=== PATIENT | female | born 1950 | race Caucasian/White ===

== ENCOUNTER 2019-01-17 18:45 | Inpatient (IN) | payer OTHER, MEDICARE ==
[~2019-01-17] VITALS: Ht 157.5 cm; Wt 76.7 kg
[2019-01-17] MEDS ORDERED: ETOMIDATE 2MG/ML 10ML VIAL IV ONE ×2 (18:56→19:15)
[2019-01-17] MEDS ORDERED: SUCCINYLCHOLINE CHLORIDE 200MG/10ML IV ONE ×2 (18:56→19:15)
[2019-01-17] MEDS ORDERED: PROPOFOL 10MG/ML 100ML 100 ML IV ONE (19:06)
[2019-01-17] MEDS ORDERED: HYDRALAZINE 20MG/ML VIAL ONE (19:07)
[2019-01-17] MEDS ORDERED: PROPOFOL 10MG/ML 100ML 100 ML IV SCH ×2 (19:15→22:15)
[2019-01-17] MEDS ORDERED: HYDRALAZINE 20MG/ML VIAL IV ONE (19:15)
[2019-01-17 19:22] LABS: BASOPHILS % 0.4 % (0.0-2.0); EOSINOPHILS % 0.8 % (0.0-5.0); HEMATOCRIT. 46.9 % (36.0-48.0); HEMOGLOBIN. 15.4 g/dL (12.0-16.0); LYMPHOCYTES % 24.9 % (20.0-50.0); MEAN CORPUSCULAR HEMOGLOBIN 28.4 pg (28.0-32.0); MEAN CORPUSCULAR VOLUME 86.2 fL (81.0-99.0); MEAN PLATELET VOLUME 8.2 fl (7.4-10.4); MONOCYTES % 4.4 % (2.0-8.0); NEUTROPHILS % 69.5 % (40.0-76.0); PLATELET 302 x1000/uL (130-400); RED BLOOD CELL COUNT 5.44 mill/uL (4.2-5.4); RED CELL DISTRIBUTION WIDTH 14.5 % (11.6-14.6)
[2019-01-17 19:27] LABS: CHLORIDE 103 mEq/L (98-107); PROTHROMBIN TIME 9.8 sec (9.6-11.0)
[2019-01-17 19:31] LABS: ETHANOL BLOOD < 10 mg/dL
[2019-01-17 19:34] LABS: LDL CHOLESTEROL 215 mg/dL (5-100)
[2019-01-17 20:33] LABS: CLARITY URINE CLEAR (CLEAR); COLOR URINE YELLOW (YELLOW); KETONES URINE 1+ (NEGATIVE); LEUKOCYTE ESTERASE URINE NEGATIVE (NEGATIVE); NITRITE URINE NEGATIVE (NEGATIVE); OCCULT BLOOD URINE NEGATIVE (NEGATIVE); PROTEIN URINE NEGATIVE (NEGATIVE); SPECIFIC GRAVITY URINE 1.033 (1.005-1.030); UROBILINOGEN URINE 0.2 E.U./dL (0.2-1.0)
[2019-01-17 20:42] LABS: *AMPHETAMINES SCREEN URINE NEGATIVE (NEGATIVE); *BARBITURATES SCREEN URINE NEGATIVE (NEGATIVE); *BENZODIAZEPINES SCREEN URINE NEGATIVE (NEGATIVE); *COCAINE SCREEN URINE NEGATIVE (NEGATIVE); METHADONE URINE SCREEN NEGATIVE (NEGATIVE); OPIATES URINE SCREEN NEGATIVE (NEGATIVE)
[2019-01-17 20:43] LABS: CANNABINOID URINE SCREEN NEGATIVE (NEGATIVE); PHENCYCLIDINE URINE SCREEN NEGATIVE (NEGATIVE)
[2019-01-17 20:49] LABS: BG CARBOXYHEMOGLOBIN 0.7 % (0.5-1.5); BG DEOXYHEMOGLOBIN 0.3 % (0.0-5.0); BG FRACTION INSPIRED OXYGEN 100; BG HCO3 ACT 19.1 mmol/L (22.0-26.0); BG METHEMOGLOBIN 0.4 % (0.0-1.5); BG OXYGEN SATURATION 99.7 % (92.0-98.5); BG OXYHEMOGLOBIN 98.6 % (94.0-97.0); BG PCO2 29.9 mmHg (35.0-45.0); BG PH 7.423 (7.350-7.450); BG SAMPLE SITE RIGHT RADIAL; BG TIDAL VOLUME(mL) 450 mL; BG TOTAL HEMOGLOBIN 15.3 g/dL (12.0-18.0); BG VENT MODE VENT - A/C; BG VENT RATE 16 set
[2019-01-17 23:23] VITALS: BP 158/95
[2019-01-17] MEDS ORDERED: IOHEXOL-350 100 ML BOTTLE ONE (23:26)
[2019-01-17 23:30] VITALS: BP 151/77
[2019-01-17 23:45] VITALS: BP 147/102
[2019-01-18] VITALS (56 sets, daily range): BP systolic 103–163; BP diastolic 59–120
[2019-01-18] MEDS ORDERED: DEXTROSE 50% WATER 50ML SYRINGE IV PRN (00:30)
[2019-01-18] MEDS ORDERED: PROPOFOL 10MG/ML 100ML 100 ML IV SCH (00:45)
[2019-01-18] MEDS ORDERED: INSULIN LISPRO 100 UNITS/ML SUBCUT SCH (01:00)
[2019-01-18] MEDS ORDERED: DEXT 5%/0.9% NACL 1,000 ML IV SCH (01:00)
[2019-01-18 04:50] LABS: BASOPHILS % 0.1 % (0.0-2.0); HEMATOCRIT. 45.1 % (36.0-48.0); HEMOGLOBIN. 15.2 g/dL (12.0-16.0); LYMPHOCYTES % 9.1 % (20.0-50.0); MEAN CORPUSCULAR HEMOGLOBIN 28.8 pg (28.0-32.0); MEAN CORPUSCULAR VOLUME 85.6 fL (81.0-99.0); MONOCYTES % 5.9 % (2.0-8.0); NEUTROPHILS % 84.9 % (40.0-76.0); PLATELET 272 x1000/uL (130-400); RED BLOOD CELL COUNT 5.27 mill/uL (4.2-5.4)
[2019-01-18 04:53] LABS: CHLORIDE 107 mEq/L (98-107)
[2019-01-18 05:06] LABS: LDL CHOLESTEROL 203 mg/dL (5-100)
[2019-01-18 05:08] LABS: HDL CHOLESTEROL 42 mg/dL (40-59)
[2019-01-18] MEDS: BLOOD SUGAR DIAGNOSTIC STRIP TEST SCH ×2 (06:04→12:08)
[2019-01-18] MEDS: INSULIN LISPRO 100 UNITS/ML SUBCUT SCH ×2 (06:07→12:00)
[2019-01-18 08:10] LABS: BG BASE EXCESS -0.4 mmol/L (-2.0-2.0); BG CARBOXYHEMOGLOBIN 0.4 % (0.5-1.5); BG DEOXYHEMOGLOBIN 1.2 % (0.0-5.0); BG FRACTION INSPIRED OXYGEN 50; BG HCO3 ACT 22.9 mmol/L (22.0-26.0); BG METHEMOGLOBIN 0.2 % (0.0-1.5); BG OXYGEN SATURATION 98.8 % (92.0-98.5); BG OXYHEMOGLOBIN 98.2 % (94.0-97.0); BG PH 7.446 (7.350-7.450); BG PO2 128.8 mmHg (75.0-100.0); BG SAMPLE SITE RIGHT RADIAL; BG TIDAL VOLUME(mL) 450 mL; BG TOTAL HEMOGLOBIN 15.1 g/dL (12.0-18.0); BG VENT MODE VENT - A/C; BG VENT RATE 14 set
[2019-01-18] MEDS ORDERED: FAMOTIDINE 20MG/2ML VIAL IV SCH (09:00)
[2019-01-18] MEDS ORDERED: ENOXAPARIN 40MG/0.4ML SYR SUBCUT SCH (09:00)
[2019-01-18] MEDS ORDERED: DOPAMINE 400MG/250ML PREMIX 250 ML IV PRN (09:45)
[2019-01-18] MEDS ORDERED: ASPIRIN 325MG EC TABLET PO ONE (10:30)
[2019-01-18] MEDS ORDERED: ASPIRIN 325MG EC TABLET PO SCH (10:30)
[2019-01-18] MEDS ORDERED: LEVOFLOXACIN 500MG PREMIX 100 ML IV SCH (11:00)
[2019-01-18] MEDS ORDERED: ASPIRIN 325MG TABLET PO ONE (11:00)
[2019-01-18] MEDS ORDERED: IPRATROPIUM/ALBUTEROL 0.5-3(2.5)MG/3ML NEB HHN PRN (11:15)
[2019-01-18] MEDS ORDERED: ASPIRIN 325MG TABLET NG SCH (11:30)
[2019-01-18] MEDS ORDERED: IPRATROPIUM/ALBUTEROL 0.5-3(2.5)MG/3ML NEB HHN SCH (12:00)
[2019-01-18] MEDS ORDERED: VANCOMYCIN 1500MG in DEXTROSE 5% WATER 250ML IV SCH (12:00)
[2019-01-18] MEDS ORDERED: METF-516 MT (12:39)
[2019-01-18] MEDS ORDERED: MECL-109 PO (12:39)
[2019-01-18] MEDS ORDERED: GABA600T MT (12:39)
[2019-01-18] MEDS ORDERED: DAPA10TA PO (12:39)
[2019-01-18] MEDS ORDERED: CHOL200074 MT (12:39)
[2019-01-18] MEDS ORDERED: ATOR20TA65 MT (12:39)
[2019-01-18] MEDS ORDERED: GLIM2TAB2 PO (12:39)
[2019-01-18] MEDS ORDERED: MULT1TAB63 PO (12:39)
[2019-01-18] MEDS ORDERED: BENA40TA9 PO (12:39)
[2019-01-18] MEDS ORDERED: IBUP-2030 MT (12:39)
[2019-01-18] MEDS ORDERED: LEVO5TAB13 MT (12:39)
[2019-01-18] MEDS ORDERED: ASPI-1158 PO (12:39)
[2019-01-18] MEDS ORDERED: OMEP40CA34 MT (12:39)
[2019-01-18] MEDS ORDERED: METRONIDAZOLE 500MG TABLET PO SCH (14:00)
[2019-01-18] MEDS ORDERED: ATORVASTATIN CALCIUM 40MG TABLET PO SCH (21:00)
[2019-01-18] MEDS ORDERED: VANCOMYCIN 750 MG PREMIX 150 ML IV SCH (23:00)
== END 2019-01-18 14:30 | disposition short-term general hospital (02) | DRG 64 ==
LOC: ER 18:45 → EDSEX 18:45 → MICUSO 20:56 → EDBEDREQTM 21:13 → EDBEDREQ 21:13 → ENRESERV 21:25
PROVIDERS: ADMIT Family Medicine; ATTEND Family Medicine
PROC: 5A1935Z Respiratory Ventilation, Less than 24 Consecutive Hours (ICD-10-PCS; principal; 2019-01-17)
PROC: 0BH17EZ Insertion of Endotracheal Airway into Trachea, Via Natural or Artificial Opening (ICD-10-PCS; 2019-01-17)
DX: I63.22 Cerebral infarction due to unspecified occlusion or stenosis of basilar artery (principal); G93.41 Metabolic encephalopathy; J96.00 Acute respiratory failure, unspecified whether with hypoxia or hypercapnia; I63.543 Cerebral infarction due to unspecified occlusion or stenosis of bilateral cerebellar arteries; I16.1 Hypertensive emergency; E11.65 Type 2 diabetes mellitus with hyperglycemia; E78.00 Pure hypercholesterolemia, unspecified; E78.5 Hyperlipidemia, unspecified; I10 Essential (primary) hypertension; Z91.14 Patient's other noncompliance with medication regimen; Z88.0 Allergy status to penicillin; Z79.899 Other long term (current) drug therapy; Z79.82 Long term (current) use of aspirin
CPT/HCPCS: 36415; 36600; 70496; 70498; 70544; 70553; 71045; 80061; 80305; 80320; 82375; 82805; 82962; 83036; 83721; 84443; 84484; 93005; 93970; 94002; 94003; 99285; J0330; J0360; J1650; J1815; J1956; J2704; J3370; J3490; J7042; J7060; Q9967; G0480